=== PATIENT | female | born 1950 | race Caucasian/White ===

== ENCOUNTER 2016-11-06 06:54 | Outpatient (CLI) | payer MEDICARE ==
[~2016-11-06] VITALS: Ht 160 cm; Wt 119.3 kg
[~2016-11-06 06:54] MED LIST: ALBUTEROL 90 MCG INH; ALPR0.25 PO; AMIO200T2 PO; ASPI-808 PO; BUSP10TA95 PO; CALC600T80 PO; CHOL500049 PO; DOCU100C37 PO; ETOD600T PO; FEXO-46 PO; FURO20TA4 PO; GABA-488 PO; GABA600T2 PO; GABA800T2 PO; HC A30CR4 TOP; HYDR-3820 PO; INDA2.5T2 PO; LEVA1.2516 INH; LISI2.5T PO; MAGN200T PO; METO-270 PO; MONT10TA24 PO; MULT1TAB69 PO; RIVA10TA PO; TOLT2CAP PO; TRAZ150T72 PO; VIT1TABL80 PO; [UNRECOGNIZED DRUG - OTHER] PO
[2016-11-06] MEDS ORDERED: TRIAMCINOLONE ACET (KENALOG-40) 40 MG/ML 1 ML VIAL ONE (07:03)
[2016-11-06] MEDS ORDERED: LIDOCAINE 1% INJ 20 ML (XYLOCAINE) VIAL ONE (07:03)
[2016-11-06] MEDS ORDERED: BUPIVACAINE 0.5% 30 ML (SENSORCAINE) VIAL ONE (07:03)
[2016-11-06 07:13] VITALS: BP 96/54
[2016-11-06 07:48] VITALS: BP 121/75
--- NOTE | 2016-11-06 12:32 | Pain Medicine-Procedure ---
Procedure Pre-Op/Post-Op Diagnosis Diagnosis: spondylosis without myelopathy, lumbar Indications for Operation Low back pain Attending Surgeon Elder Procedure Date of Service: Nov 06, 2016 PROCEDURE: Bilateral lumbar medial branch block at L3,L4, L5 and sacral ala under fluoroscopic guidance. PROCEDURE DETAILS: After obtaining an informed consent from the patient, the patient's chart was reviewed. The patient was brought to the procedure room and placed in a prone position. The back was prepped with antiseptic solution, and under fluoroscopic guidance the sacral ala was identified bilaterally. 0.5 cc of 1% Lidocaine to anesthetize the skin. Two 22 gauge 3.5 inch spinal needles were inserted under fluoroscopic guidance until it got in touch with the bone at the sacral ala bilaterally. Then under right oblique fluoroscopy, the junction of the superior articular process and transverse process on the right at L3, L4, and L5 was identified. 0.5 cc of 1% Lidocaine was used to anesthetize the skin. A 22 gauge 3.5 inch spinal needle was inserted through the skin under fluoroscopic guidance until it came in touch with the bone at the junction between the superior articular process and transverse process at each level. The exact steps were repeated for the left side. After needle aspiration,80 mg of kenalog total was injected in equal alliquots followed by 0.5 cc of 0.5% bupivacaine at each. The patient tolerated the procedure well. The needles were flushed and removed, and a Band-Aide was applied. Complications None KAREN JOVEL MD Nov 06, 2016 12:32 pm
== END 2016-11-06 07:49 | disposition home or self-care (01) ==
LOC: CARD 06:54
PROVIDERS: ATTEND Pain Medicine Pain Medicine
DX: M47.816 Spondylosis without myelopathy or radiculopathy, lumbar region (principal); Z79.899 Other long term (current) drug therapy
CPT/HCPCS: 64493; 64494; 64495

== ENCOUNTER → 2017-02-26 | Outpatient (CLI) | payer MEDICARE | LOC: CARD 08:25 | PROVIDERS: ATTEND Internal Medicine Critical Care Medicine | DX: I27.2 Other secondary pulmonary hypertension (principal) | CPT/HCPCS: 93306 ==

== ENCOUNTER → 2018-12-12 | Outpatient (CLI) | payer MEDICARE ==
[~2018-12-12] MED LIST changes: -AMIO200T2 PO; +AMIO200T4 PO; -GABA600T2 PO; +GABA800T10 PO; -GABA800T2 PO; +GBPN600T PO; +HOLD METFORMIN - RECEIVED CONTRAST 20 ML VIAL IV SCH; +IOHEXOL 350 MG/ML 100 ML (OMNIPAQUE 350) VIAL IV ONE; -LEVA1.2516 INH; +LEVA1.2543 INH; -METO-270 PO; +METO-387 PO; +RIVA10T PO; -RIVA10TA PO
--- NOTE | 2018-12-12 13:46 | Diagnostic Imaging Report ---
PROCEDURE: CT abdomen and pelvis with contrast. TECHNIQUE: Multiple contiguous axial images were obtained through the abdomen and pelvis after administration of intravenous contrast. Auto Exposure Controls were utilized during the CT exam to meet ALARA standards for radiation dose reduction. INDICATION: Shingles, abdominal pain, and right-sided back pain. COMPARISON: No prior studies are available for comparison. FINDINGS: Lung bases are clear. No discrete liver mass is identified. Gallbladder is unremarkable. No biliary ductal dilatation is seen. Pancreas and spleen are unremarkable. No adrenal masses identified. Kidneys are unremarkable apart from an exophytic 12 mm nodule arising from the upper pole of the right kidney laterally, indeterminate. Aorta is calcified but nonaneurysmal. Small and large bowel loops are normal caliber. No obstruction is seen. There is no free fluid. The uterus and bladder are unremarkable. Bony structures are nonacute. IMPRESSION: 1. No acute feature in the abdomen or pelvis is identified. 2. 12 mm right renal nodule, indeterminate. Followup in six months could be performed to confirm stability. Study is otherwise unremarkable. Dictated by: Dictated on workstation # [id number]
== END ==
LOC: RAD 12:16
PROVIDERS: ATTEND Family Medicine
DX: B02.9 Zoster without complications (principal); N28.89 Other specified disorders of kidney and ureter; R10.9 Unspecified abdominal pain; M54.9 Dorsalgia, unspecified
CPT/HCPCS: 74177

== ENCOUNTER 2022-02-04 19:13 | Emergency (ER) | payer MEDICARE ==
[~2022-02-04] VITALS: Ht 160 cm; Wt 126.4 kg
[~2022-02-04 19:13] MED LIST changes: +ACHYD1T PO; -AMIO200T4 PO; +AMIO200T65 PO; -FEXO-46 PO; -HOLD METFORMIN - RECEIVED CONTRAST 20 ML VIAL IV SCH; -HYDR-3820 PO; -IOHEXOL 350 MG/ML 100 ML (OMNIPAQUE 350) VIAL IV ONE; -LISI2.5T PO; +LISI2.5T13 PO; -METO-387 PO; +MONT-40 PO; -MONT10TA24 PO; +MTP25TSR PO; +MULT-567 PO; -MULT1TAB69 PO; +NF-ALLE180 PO
[2022-02-04] MEDS ORDERED: fentaNYL INJ 100 MCG/2 ML AMP IM ONE (20:00)
--- NOTE | 2022-02-04 20:21 | ED Back Pain ---
General Chief Complaint: Back Problems Stated Complaint: BACK PAIN Nursing Triage Note: PT ARRIVAL TO ER [facility]IA [facility] WITH COMPLAINT OF CHRONIC BACK PAIN. PT CALLED PCP WHO TOLD HER TO JUST GO TO THE ER. PAIN IS DULL ACHE AT 8/10. Source of Information: Patient Exam Limitations: No Limitations History of Present Illness Date Seen by Provider: Feb 04, 2022 Time Seen by Provider: 20:21 Allergies and Home Medications Allergies Coded Allergies: Penicillins (Verified Allergy, Unknown, 05/14/15) Patient Home Medication List Alprazolam (Xanax) 0.25 Mg Tablet, 0.25 MG PO UD Prescribed by: REINA CANTU on 05/17/15 0739 Amiodarone HCl (Amiodarone HCl) 200 Mg Tablet, 200 MG PO BID, (Reported) Entered as Reported by: REINA CANTU on 05/14/151848 Aspirin (Aspirin) 325 Mg Tablet, 325 MG PO DAILY, (Reported) Entered as Reported by: REINA CANTU on 05/14/151848 Buspirone HCl (Buspirone HCl) 10 Mg Tablet, 10 MG PO BID, (Reported) Entered as Reported by: REINA CANTU on 05/14/151848 Calcium Carbonate (Calcium Carbonate) 600 Mg Tablet, 600 MG PO DAILY, (Reported) Entered as Reported by: REINA CANTU on 05/14/15 191 Cholecalciferol (Vitamin D3) (Vitamin D3) 50,000 Unit Capsule, 50,000 UNIT PO Q7DAYS, (Reported) Entered as Reported by: REINA CANTU on 05/14/151848 Docusate Sodium (Docusate Sodium) 100 Mg Capsule, 100 MG PO BID Prescribed by: TRISHA NO on 05/30/15 1217 Etodolac (Etodolac ER) 600 Mg Tab.er.24h, 600 MG PO BID, (Reported) Entered as Reported by: REINA CANTU on 05/14/151848 Fexofenadine HCl (Fexofenadine HCl) 180 Mg Tablet, 180 MG PO DAILY, (Reported) Entered as Reported by: REINA CANTU on 05/14/151848 Furosemide (Furosemide) 20 Mg Tablet, 20 MG PO DAILY, (Reported) Entered as Reported by: REINA CANTU on 05/14/151848 Gabapentin (Gabapentin) 800 Mg Tablet, 800 MG PO HS, (Reported) Entered as Reported by: REINA CANTU on 05/14/151848 Gabapentin (Gabapentin) 600 Mg Tablet, 600 MG PO 07,12,17 Prescribed by: TRISHA NO on 05/30/151216 Hydrocodone Bit/Acetaminophen (HYDROcodone/APAP 10/325 TABLET) 1 Each Tablet, 1- 2 EA PO Q4H PRN for PAIN Prescribed by: TRISHA NO on 05/30/15 1508 Hydrocortisone/Pramoxine (Hydrocort-Pramoxine 1%-1% Crm) 30 Gm Cream.appl, 0 GM TOP BID PRN for HEMORRHOIDS Prescribed by: TRISHA NO on 05/30/15 121 Indapamide (Indapamide) 2.5 Mg Tablet, 2.5 MG PO DAILY, (Reported) Entered as Reported by: REINA CANTU on 05/14/151848 L. Acidophilus/Bifid. Animalis ([facility]) 1 Each Tab.chew, 1 EACH PO DAILY, (Reported) Entered as Reported by: REINA CANTU on 05/14/151848 Levalbuterol HCl (Levalbuterol HCl) 1.25 Mg/3 Ml Vial.neb, 1.25 MG INH RTQ8HR PRN for SHORTNESS OF BREATH Prescribed by: TRISHA NO on 05/30/15 150 Lisinopril (Lisinopril) 2.5 Mg Tablet, 2.5 MG PO DAILY, (Reported) Entered as Reported by: REINA CANTU on 05/14/151848 Magnesium (Magnesium) 200 Mg Tablet, 200 MG PO TID, (Reported) Entered as Reported by: REINA CANTU on 05/14/151848 Metoprolol Succinate (Metoprolol Succinate) 25 Mg Tab.er.24h, 25 MG PO DAILY, (Reported) Entered as Reported by: REINA CANTU on 05/14/151848 Montelukast Sodium (Montelukast Sodium) 10 Mg Tablet, 10 MG PO DAILY, (Reported) Entered as Reported by: REINA CANTU on 05/14/151848 Multivitamin (Multivitamins) 1 Each Tablet, 1 EACH PO DAILY, (Reported) Entered as Reported by: REINA CANTU on 05/14/151848 Rivaroxaban (Xarelto Tablet) 10 Mg Tablet, 10 MG PO DAILY@1800 Prescribed by: TRISHA NO on 05/30/15 1217 Tolterodine Tartrate (Detrol LA) 2 Mg Cap, 2 MG PO HS Prescribed by: TRISHA NO on 05/30/15 1217 Trazodone HCl (Trazodone HCl) 150 Mg Tablet, 150 MG PO HS, (Reported) Entered as Reported by: REINA CANTU on 05/14/151848 Vit B1 Mn/B2/B3/B5/B6/B12/C/FA (B Complex with Vitamin C Tab) 1 Each Tablet, 1 EACH PO DAILY, (Reported) Entered as Reported by: REINA CANTU on 05/14/151918 [Albuterol 90 MCG] , 2 PUFF INH Q6H PRN for SHORTNESS OF BREATH, (Reported) Entered as Reported by: REINA CANTU on 05/14/151918 Past Egngkpa-Hgfima-Dndbah Hx Patient Social History Tobacco Use?: No Use of E-Cig and/or Vaping dev: No Substance use?: No Alcohol Use?: No Pt feels they are or have been: No Immunizations Up To Date Tetanus Booster (TDap): Unknown Influenza Vaccine Up-to-Date: No; Not Current Second COVID19 Vaccination Serjio: UNKNOWN Past Medical History Orthopedic Asthma, Sleep Apnea Currently Using CPAP: No Currently Using BIPAP: No Atrial Fibrillation Reproductive Disorders: No Arthritis, Chronic Back Pain Anxiety, Depression Physical Exam Vital Signs Vital Signs - First Documented 02/04/22 19:26 Temp 38.0 Pulse 90 Resp 20 B/P (MAP) 131/80 (97) Pulse Ox 95 O2 Delivery Room Air Capillary Refill : Less Than 3 Seconds Height, Weight, BMI Height: 5'3.00" Weight: 263lbs. 0.0oz. 119.907524ea; 49.00 BMI Method: Progress/Results/Core Measures Results/Orders My Orders Orders - ELISSA ALDRICH APRN Fentanyl Inj (Sublimaze Injection) (02/04/22 20:00) Ct Lumbar Spine Wo (02/04/22 20:20) Hydromorphone Injection (Dilaudid Inject (02/04/22 21:15) Prednisone Tablet (Deltasone Tablet) (02/04/22 21:15) Medications Given in ED Current Medications Medications Dose Ordered Sig/Herson Route Start Time Stop Time Status Last Admin Dose Admin Fentanyl Citrate 50 mcg ONCE ONCE IM 02/04/22 20:00 02/04/22 20:01 DC 02/04/22 20:12 50 MCG Vital Signs/I&O 02/04/22 19:26 Temp 38.0 Pulse 90 Resp 20 B/P (MAP) 131/80 (97) Pulse Ox 95 O2 Delivery Room Air Blood Pressure Mean: 97 Departure Impression Primary Impression: Lumbar stenosis Disposition: HOME, SELF-CARE Condition: Improved Departure-Patient Inst. Decision time for Depature: 21:19 Referrals: LANCE AYALA MD (PCP) Primary Care Physician KARI POSADAS MD (Family) Primary Care Physician Patient Instructions: Spinal Stenosis (DC) Add. Discharge Instructions: Plan: 1. Take Prednisone 40mg by mouth daily with food for 5 days. 2. Take Miralax by mouth twice a day until you have soft stools. 3. Follow up with your doctor in 7-10 days. 4. Return to ER for any new, concerning, or worsening symptoms. All discharge instructions reviewed with patient and/or family. Voiced understanding. Scripts Prednisone (Prednisone) 20 Mg Tab 40 MG PO DAILY for 4 Days, #8 TAB 0 Refills Take 3 tabs(60mg)daily, decrease by 1/2 tab(10mg)daily. Prov: ELISSA ALDRICH BIOLOGY FACULTY MEMBER 02/04/22 ELISSA ALDRICH BIOLOGY FACULTY MEMBER Feb 04, 2022 20:21
--- NOTE | 2022-02-04 21:04 | Diagnostic Imaging Report ---
PROCEDURE: CT lumbar spine without contrast. TECHNIQUE: Multiple contiguous axial images were obtained through the lumbar spine without the use of intravenous contrast. Sagittal and coronal reformations were then performed. Auto Exposure Controls were utilized during the CT exam to meet ALARA standards for radiation dose reduction. INDICATION: Low back pain. No known injury. COMPARISON: CT abdomen and pelvis on 12/12/2018. FINDINGS: No acute fracture or dislocation is seen in the lumbar spine. There is slight right convexity curvature of the lumbar spine centered at the L3 level. No suspicious focal osseous lesions are seen. Degenerative changes are present in the lumbar spine with disc osteophyte complexes and facet hypertrophy. High-grade spinal canal stenosis is seen at the L2-L3, L3-L4, and L4-L5 levels. Vacuum disc is noted at the L1-L2 and L3-L4 levels. There is calcified aortic atherosclerotic plaque. The paraspinal soft tissues are unremarkable. IMPRESSION: 1. No acute fracture or dislocation in the lumbar spine. 2. Advanced degenerative changes in the lumbar spine with severe spinal canal stenosis at L2-L3, L3-L4 and L4-L5. Consider MRI of the lumbar spine to further evaluate. Dictated by: Dictated on workstation # [id number]
[2022-02-04] MEDS ORDERED: HYDROmorphone 2 MG/ML VIAL (DILAUDID) IM ONE (21:15)
[2022-02-04] MEDS ORDERED: predniSONE 20 MG TAB PO ONE (21:15)
[2022-02-04] MEDS ORDERED: PRD20T PO (21:22)
[2022-02-04 21:24] VITALS: BP 129/73
== END 2022-02-04 21:50 | disposition home or self-care (01) ==
LOC: EDUNIT# 19:13 → ER 19:15
DX: M48.061 Spinal stenosis, lumbar region without neurogenic claudication (principal)
CPT/HCPCS: 72131